=== PATIENT | female | born 1950 | race Caucasian/White ===

== ENCOUNTER 2023-11-01 15:08 | Emergency (ER) | payer MEDICARE, SELFPAY ==
[2023-11-01 15:20] VITALS: BP 167/83; PULSE 95; RESP 18; TEMP 37.1; O2SAT 95; BMI 27.1
--- NOTE | 2023-11-01 15:30 | EKG_ITS ---
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
[2023-11-01 15:37] LABS: Add Manual Diff / Slide Review NO; Basophils Absolute Auto 0 /uL (0-100); Basophils Percent Auto 0.4 % (0-2); Eosinophils Absolute Auto 0 /uL (0-450); Eosinophils Percent Auto 0.6 % (2-4); Hematocrit 36.2 % (36-46); Lymphocytes Absolute Auto 1800 /uL (1100-4500); Lymphocytes Percent Auto 22.9 % (25-40); Mean Corpuscular HGB Conc 33.2 % (30-36); Mean Corpuscular Hemoglobin 29.6 PG (26-34); Mean Corpuscular Volume 89.2 fL (80-100); Monocytes Absolute Auto 600 /uL (0-900); Monocytes Percent Auto 7.2 % (3-14); Neutrophils Absolute Auto 5300 /uL (1500-7000); Neutrophils Percent Auto 68.9 % (50-75); Platelet Count 268 X10^3/uL (150-400); Red Blood Cell Count 4.06 X10^6/uL (4.0-5.2); Red Cell Distribution Width 14.2 % (11.6-14.8); White Blood Cell Count 7.7 X10^3/uL (4.5-11.0)
[2023-11-01 15:42] LABS: Alanine Aminotransferase 18 IU/L (<35); Albumin 4.3 g/dL (3.5-5.0); Albumin Globulin Ratio 1.5 (1.0-2.8); Alkaline Phosphatase 132 U/L (38-126); Aspartate Aminotransferase 31 IU/L (14-36); BUN Creatinine Ratio 10.6 (6-22); Bilirubin Total 0.7 mg/dL (0.2-1.3); Blood Urea Nitrogen 11 mg/dL (7-17); Calcium 9.2 mg/dL (8.4-10.2); Carbon Dioxide 27 mmol/L (22-32); Chloride 110 mmol/L (98-107); Estimated Glomerular Filt Rate 56 mL/min (>60); Globulin 2.9 g/dL (1.7-4.1); Glucose 121 mg/dL (80-110); HEMOLYSIS < 15 (0-50); Potassium 3.8 mmol/L (3.4-5.1); Sodium 143 mmol/L (137-145); Total Protein 7.2 g/dL (6.3-8.2)
[2023-11-01 15:53] LABS: Troponin I < 0.012 ng/mL (0.01-0.034)
[2023-11-01] MEDS: SODIUM CHLORIDE 0.9% 1,000 ML 1000 ML IV (17:14)
--- NOTE | 2023-11-01 17:34 | ED.DIZZY ---
HPI - Dizziness General Chief Complaint: Dizziness Stated Complaint: Weakness Time Seen by Provider: 11/01/23 16:45 Source: EMS Mode of arrival: EMS History of Present Illness HPI Narrative: Patient is 73-year-old female history of depression hyperlipidemia PTSD presenting today with dizziness. She reports that she has had dizziness ongoing previously she says usually she drinks water and it gets better. She did not fall or hit her head today. She says it came on suddenly while she was sitting. She has no chest pain palpitations numbness tingling or weakness. This feels like the last time. She feels like she is going to fall or pass out when she stands up but has not fallen. She feels like this happens to her when she gets anxious. She has no fever or chills. She has not on any antiplatelet anticoagulation medication. Related Data Home Medications Medication Instructions Recorded Confirmed multivitamin (Multiple Vitamins 1 tab PO QDAY ##0 04/06/16 tablet) topiramate 200 mg tablet (Topamax) 200 mg ##0 06/20/16 azelastine 205.5 mcg (0.15 %) 2 spray INH QDAY ##1 07/08/16 nasal spray Previous Rx's Medication Instructions Recorded epinastine 0.05 % eye drops 1 drp OP BID ##1 07/01/16 (Elestat) lamotrigine 300 mg tablet,extended 300 mg PO QDAY #30 tabs 07/01/16 release 24 hr oxycodone 10 mg tablet 10 mg PO Q6HP PRN #112 tabs 07/01/16 venlafaxine 150 mg tablet,extended 150 mg PO QDAY ##180 07/01/16 release 24 hr hydroxyzine pamoate 25 mg capsule 25 mg PO QID PRN #60 caps 11/21/16 amoxicillin 500 mg capsule 500 mg PO BID #14 caps 11/01/23 Allergies Allergy/AdvReac Type Severity Reaction Status Date / Time CLINDAMYCIN Allergy Intermediate iching in Uncoded 11/01/23 15:25 throat drug from dentist MARIJUANA Allergy Mild FACIAL Uncoded 11/01/23 15:25 SWELLING PENICILLIN Allergy Mild RASH Uncoded 11/01/23 15:25 Patient History Social History Smoking Status: Former smoker Smoking Status: Former smoker Substance Use Type: does not use Exam Initial Vital Signs Initial Vital Signs: Vital Signs Temperature 98.8 F 11/01/23 15:20 Pulse Rate 95 H 11/01/23 15:20 Respiratory Rate 18 11/01/23 15:20 Blood Pressure 167/83 H 11/01/23 15:20 Pulse Oximetry 95 11/01/23 15:20 Oxygen Delivery Method Room Air 11/01/23 15:20 GENERAL: Alert slightly disheveled 73-year-old female HEENT: Head atraumatic,EOMI, pupils reactive, face symmetric, no nystagmus poor dentition CARDIOVASCULAR: Regular rate and rhythm without murmurs, rubs or gallops. RESPIRATORY: Breath sounds equal bilaterally, no wheezes rales or rhonchi. ABDOMEN: Soft, nontender. Normoactive bowel sounds all 4 quadrants. No guarding or rebound. EXTREMITIES: Normal range of motion, no clubbing or edema. Neurovascularly intact NEUROLOGICAL: Alert and oriented x4.Normal gait and speech. Cranial nerves II through XII grossly intact. SKIN: Warm, dry, no laceration, no petechiae, no rashes or lesions. Course Orders Ordered: ED Orders 11/01/23 15:12 Complete Blood Count AUTO DIFF Stat Comprehensive Metabolic Panel Stat Troponin I Stat 11/01/23 15:27 EKG-12 Lead Stat Discontinued Medications Sodium Chloride (Normal Saline 0.9%) 1,000 mls @ 1,000 mls/hr IV BOLUS ONE Stop: 11/01/23 17:43 Last Infusion: 11/01/23 18:49 Dose: Infused Documented By: Admin: 11/01/23 17:14 Dose: 1,000 mls/hr Documented By: NORAH Oxycodone HCl (Oxycodone Ir 5 Mg Tablet) 5 mg PO NOW ONE Stop: 11/01/23 18:12 Last Admin: 11/01/23 18:17 Dose: 5 mg Documented By: Vital Signs Vital signs: Vital Signs - 8 hr 11/01/23 15:20 Temperature 98.8 F Pulse Rate 95 H Respiratory Rate 18 Blood Pressure 167/83 H Pulse Oximetry 95 Oxygen Delivery Method Room Air MDM - Dizziness Lab Data 11/01/23 15:12 11/01/23 15:12 Labs: Lab Results 11/01/23 Range/Units 15:12 WBC 7.7 (4.5-11.0) X10^3/uL RBC 4.06 (4.0-5.2) X10^6/uL Hgb 12.0 (12.0-16.0) g/dL Hct 36.2 (36-46) % MCV 89.2 (80-100) fL MCH 29.6 (26-34) PG MCHC 33.2 (30-36) % RDW 14.2 (11.6-14.8) % Plt Count 268 (150-400) X10^3/uL Neut % (Auto) 68.9 (50-75) % Lymph % (Auto) 22.9 L (25-40) % [place] % (Auto) 7.2 (3-14) % Eos % (Auto) 0.6 L (2-4) % Baso % (Auto) 0.4 (0-2) % Neut # (Auto) 5300 (6806-7776) /uL Lymph # (Auto) 1800 (3016-5576) /uL [place] # (Auto) 600 (0-900) /uL Eos # (Auto) 0 (0-450) /uL Baso # (Auto) 0 (0-100) /uL Sodium 143 (137-145) mmol/L Potassium 3.8 (3.4-5.1) mmol/L Chloride 110 H (98-107) mmol/L Carbon Dioxide 27 (22-32) mmol/L BUN 11 (7-17) mg/dL Creatinine 1.04 (0.52-1.04) mg/dL Estimated GFR 56 L (>60) mL/min BUN/Creatinine Ratio 10.6 (6-22) Glucose 121 H (80-110) mg/dL Calcium 9.2 (8.4-10.2) mg/dL Total Bilirubin 0.7 (0.2-1.3) mg/dL AST 31 (14-36) IU/L ALT 18 (<35) IU/L Alkaline Phosphatase 132 H (38-126) U/L Troponin I < 0.012 (0.01-0.034) ng/mL Total Protein 7.2 (6.3-8.2) g/dL Albumin 4.3 (3.5-5.0) g/dL Globulin 2.9 (1.7-4.1) g/dL Albumin/Globulin Ratio 1.5 (1.0-2.8) Point of Care Testing Glucose POC 125 Urine Dip Bedside Urine Glucose Negative Bedside Urine Bilirubin - Negative Bedside Urine Ketone - Negative Urine Specific [place] 1.020 Bedside Urine Occult Blood - Negative Bedside Urine pH 6.0 Bedside Urine Protein - Negative Bedside Urine Urobilinogen - Negative Bedside Urine Nitrite - Negative Bedside Urine Leukocytes - Negative Esterase ECG Data Interpretation: Normal sinus rhythm rate 93 SC interval 196 QRS [address] changes MDM Narrative Medical decision making narrative: Patient is 73-year-old female presenting today with dizziness. She says that this happens to her often she feels like it is anxiety and usually IV fluids help. She has not nauseous or vomiting she has no focal deficits. Blood work has been reviewed without any significant abnormalities no anemia leukocytosis electrolyte abnormality or JADIEL with a negative troponin. EKG does not show any abnormality She received a L of IV fluids as her her home oxycodone she was given 5 mg. Patient is no longer dizzy feeling better but really complaining of dental pain. No evidence significant facial swelling erythema or dental abscess but will start her on amoxicillin. She is asked the staff repeatedly for a tooth pick and has been given a toothbrush and she is very unhappy. She no longer dizzy sitting up moving all extremities no focal deficits. Her has called her a [employer] cab Discharge Plan Departure Patient Disposition: Home Clinical Impression: Dizziness Instructions: DI for Dizziness-Nonvertigo Activity Restrictions/Additional Instructions: *You have been diagnosed with dizziness anxiety *What to do: At this time please go home and drink fluids take your tooth medicine as needed *Continue to take medications as directed *Follow up with your primary care provider in 2-3 days or call [phone] *Return to ER if you should have increasing dizziness fall or any new, worsening or concerning symptoms Prescriptions: New amoxicillin 500 mg capsule 500 mg PO BID Qty: 14 0RF No Action multivitamin [Multiple Vitamins] 1 EACH tablet 1 tab PO QDAY Qty: 0 topiramate [Topamax] 200 MG tablet 200 mg Qty: 0 oxycodone 10 MG tablet 10 mg PO Q6HP PRNQty: 112 0RF venlafaxine 150 MG tablet extended release 24hr 150 mg PO QDAY Qty: 180 1RF lamotrigine 300 MG tablet extended release 24hr 300 mg PO QDAY Qty: 30 0RF epinastine [Elestat] 5 ML drops 1 drp OP BID Qty: 1 0RF azelastine 205.5 MCG/0.137 ML spray,non-aerosol 2 spray INH QDAY Qty: 1 hydroxyzine pamoate 25 MG capsule 25 mg PO QID PRNQty: 60 0RF Referrals: Miscellaneous,Doctor, MD [Primary Care Provider] - Stand Alone Forms: Patient Portal/API
[2023-11-01] MEDS: OXYCODONE IR 5 MG TABLET PO (18:17)
== END 2023-11-01 19:38 | disposition home or self-care (01) ==
PROVIDERS: Emergency Provider Emergency Medicine
DX: R42 Dizziness and giddiness (principal); F41.9 Anxiety disorder, unspecified
CPT/HCPCS: 80053; 81003; 84484; 85025; 93005; 93010; 96360; 96361; 99284

== ENCOUNTER 2023-11-09 20:33 | Emergency (ER) | payer MEDICARE, SELFPAY ==
[2023-11-09 20:33] VITALS: BP 154/81; PULSE 88; RESP 15; TEMP 36.9; O2SAT 98; BMI 29.0
[2023-11-09 20:37] VITALS: BP 154/81; PULSE 85; O2SAT 97
[2023-11-09 21:00] VITALS: BP 150/70; PULSE 82; O2SAT 95
[2023-11-09 21:30] VITALS: PULSE 85; O2SAT 92
[2023-11-09 21:55] VITALS: BP 162/77; PULSE 85; O2SAT 96
[2023-11-09 22:00] VITALS: BP 148/73; PULSE 84; O2SAT 96
[2023-11-10] VITALS (25 sets, daily range): BP systolic 123–156; BP diastolic 62–85; PULSE 74–101; TEMP 37.2; O2SAT 85–99
--- NOTE | 2023-11-10 00:23 | ED.WEAKNESS ---
HPI - Weakness General Chief complaint: Weakness Stated complaint: weakness, confusion Time Seen by Provider: 11/10/23 00:21 Source: patient, EMS, RN notes reviewed and old records reviewed Mode of arrival: EMS Limitations: no limitations History of Present Illness HPI Narrative: 73-year-old female history depression, dyslipidemia, PTSD presents with complaint of fall. Patient states she ended up on the floor. She describes being dizzy. She states this is happens when she gets dehydrated but states they never find anything. She denies any headache or neck pain, no chest pain or shortness of breath, no nausea or vomiting. She denies any issues with bowel movements other than stools being little bit harder constipated. No black or bloody stools. Denies any dysuria urgency or frequency. Denies any numbness tingling or weakness of her extremities. She states she ambulates on her own but does sometimes get dizzy and fall. Patient states she does not really think that she fell but sort of ended up on the floor. Patient is not on any anticoagulants. She does have an allergy to. She states she has had some sort of abdominal surgery but does not recall exactly what was. Denies tobacco, alcohol or recreational drugs. Dr. Thurman is PCP. Related Data Home Medications Medication Instructions Recorded Confirmed multivitamin (Multiple Vitamins 1 tab PO QDAY ##0 04/06/16 tablet) topiramate 200 mg tablet (Topamax) 200 mg ##0 06/20/16 azelastine 205.5 mcg (0.15 %) 2 spray INH QDAY ##1 07/08/16 nasal spray Previous Rx's Medication Instructions Recorded epinastine 0.05 % eye drops 1 drp OP BID ##1 07/01/16 (Elestat) lamotrigine 300 mg tablet,extended 300 mg PO QDAY #30 tabs 07/01/16 release 24 hr oxycodone 10 mg tablet 10 mg PO Q6HP PRN #112 tabs 07/01/16 venlafaxine 150 mg tablet,extended 150 mg PO QDAY ##180 07/01/16 release 24 hr hydroxyzine pamoate 25 mg capsule 25 mg PO QID PRN #60 caps 11/21/16 amoxicillin 500 mg capsule 500 mg PO BID #14 caps 11/01/23 docusate sodium 100 mg capsule 100 mg PO BID PRN constipation #20 11/10/23 (Colace) caps tamsulosin 0.4 mg capsule (Flomax) 0.4 mg PO DAILY #10 caps 11/10/23 Allergies Allergy/AdvReac Type Severity Reaction Status Date / Time Penicillins Allergy Verified 11/09/23 20:41 Review of Systems Review of Systems ROS Unobtainable: All systems reviewed & are unremarkable except as noted in HPI and below Patient History Social History Smoking Status: Former smoker Smoking Status: Former smoker Substance Use Type: does not use Exam Narrative Exam Narrative: GEN: Elderly female, alert and oriented, patient appears to be in mild distress. HEENT: Atraumatic, pupils are equal round reactive to light, extraocular movements are intact, nares are clear, TMs are clear with no fluid, there is no conjunctival pallor. Throat is clear without any exudates, erythema, tonsillar enlargement or uvular deviation, no facial droop. HEART: Regular rate and rhythm without murmur, clicks, rubs. Pulses are equal in upper and lower extremities LUNGS:Lungs clear to auscultation, no wheezes, rales, crackles, chest moves symmetrically ABD:bowel sounds normal, soft, non-tender, no guarding, rebound, rigidity, no masses noted, no hepatosplenomegaly :No CVA tenderness MSCL: Non-tender, no muscle atrophy, muscles strength 5/5 upper and lower extremities, full range of motion. NEURO:CN 2-12 intact, sensation normal, normal sensation. Initial Vital Signs Initial Vital Signs: Vital Signs Temperature 98.4 F 11/09/23 20:33 Pulse Rate 88 11/09/23 20:33 Respiratory Rate 15 11/09/23 20:33 Blood Pressure 154/81 H 11/09/23 20:33 Pulse Oximetry 98 11/09/23 20:33 Oxygen Delivery Method Room Air 11/09/23 20:33 Course Orders Ordered: ED Orders 11/10/23 00:39 CT head/brain wo con Stat Chest [XR chest 1V] Stat EKG-12 Lead Stat 11/10/23 01:30 CBC Auto Diff [Complete Blood Count AUTO DIFF] Stat CMP [Comprehensive Metabolic Panel] Stat Lipase Stat Troponin & CK Cardiac Panel Stat 11/10/23 03:15 CT kidney ureter bladder (KUB) Stat 11/10/23 05:21 Consult to Physical Therapy Evaluate & Treat 11/10/23 05:27 Consult to [employer] ADMINISTRATIVE ASSISTANT - Travel Registered Nurse Pacu Stat Discontinued Medications Sodium Chloride (Normal Saline 0.9%) 1,000 mls @ 1,000 mls/hr IV BOLUS ONE Stop: 11/10/23 01:38 Last Infusion: 11/10/23 02:36 Dose: Infused Documented By: Admin: 11/10/23 01:24 Dose: 1,000 mls/hr Documented By: MARVIN Ketorolac Tromethamine (Ketorolac 30 Mg/Ml Vial) 15 mg IV NOW ONE Stop: 11/10/23 04:20 Last Admin: 11/10/23 04:27 Dose: 15 mg Documented By: MARVIN Vital Signs Vital signs: Vital Signs - 8 hr 11/10/23 00:31 11/10/23 01:08 11/10/23 01:30 Pulse Rate 81 77 76 Blood Pressure Pulse Oximetry 94 85 L 97 11/10/23 02:00 11/10/23 02:30 11/10/23 03:16 Pulse Rate 76 74 77 Blood Pressure Pulse Oximetry 98 97 96 11/10/23 03:16 11/10/23 03:30 11/10/23 03:30 Pulse Rate 76 Blood Pressure 151/71 H 156/83 H Pulse Oximetry 98 11/10/23 04:01 11/10/23 04:02 11/10/23 04:02 Pulse Rate 78 78 Blood Pressure 125/68 Pulse Oximetry 95 97 11/10/23 05:31 11/10/23 05:31 11/10/23 06:00 Pulse Rate 76 Blood Pressure 129/69 149/71 H Pulse Oximetry 96 11/10/23 06:00 Pulse Rate 77 Blood Pressure Pulse Oximetry 92 MDM - Weakness Lab Data 11/10/23 01:30 11/10/23 01:30 Labs: Lab Results 11/10/23 Range/Units 01:30 WBC 8.0 (4.5-11.0) X10^3/uL RBC 3.93 L (4.0-5.2) X10^6/uL Hgb 11.5 L (12.0-16.0) g/dL Hct 34.5 L (36-46) % MCV 87.7 (80-100) fL MCH 29.3 (26-34) PG MCHC 33.4 (30-36) % RDW 14.3 (11.6-14.8) % Plt Count 281 (150-400) X10^3/uL Neut % (Auto) 62.3 (50-75) % Lymph % (Auto) 28.0 (25-40) % [place] % (Auto) 7.6 (3-14) % Eos % (Auto) 1.0 L (2-4) % Baso % (Auto) 1.1 (0-2) % Neut # (Auto) 5000 (9778-0808) /uL Lymph # (Auto) 2200 (2127-4471) /uL [place] # (Auto) 600 (0-900) /uL Eos # (Auto) 100 (0-450) /uL Baso # (Auto) 100 (0-100) /uL Sodium 140 (137-145) mmol/L Potassium 3.7 (3.4-5.1) mmol/L Chloride 110 H (98-107) mmol/L Carbon Dioxide 29 (22-32) mmol/L BUN 16 (7-17) mg/dL Creatinine 0.92 (0.52-1.04) mg/dL Estimated GFR > 60 (>60) mL/min BUN/Creatinine Ratio 17.4 (6-22) Glucose 96 (80-110) mg/dL Calcium 9.2 (8.4-10.2) mg/dL Total Bilirubin 0.8 (0.2-1.3) mg/dL AST 53 H (14-36) IU/L ALT 23 (<35) IU/L Alkaline Phosphatase 119 (38-126) U/L Total Creatine Kinase 649 H (30-135) U/L Troponin I < 0.012 (0.01-0.034) ng/mL Total Protein 6.5 (6.3-8.2) g/dL Albumin 3.8 (3.5-5.0) g/dL Globulin 2.7 (1.7-4.1) g/dL Albumin/Globulin Ratio 1.4 (1.0-2.8) Lipase 41 (23-300) U/L Urine Dip Bedside Urine Glucose Negative Bedside Urine Bilirubin - Negative Bedside Urine Ketone - Negative Urine Specific [place] 1.010 Bedside Urine Occult Blood - Negative Bedside Urine pH 6.0 Bedside Urine Protein - Negative Bedside Urine Urobilinogen - Negative Bedside Urine Nitrite - Negative Bedside Urine Leukocytes - Negative Esterase ECG Data Attestation: I personally reviewed and interpreted this ECG as follows: Prior ECG tracings: available for review Interpretation: Sinus rhythm rate of 79 AR 194 QRS is 74 QTC [address] No acute ST elevation or depression noted. Patient has similar EKG [facility]01/2023 [facility] Narrative Medical decision making narrative: Labs show white count 8 hemoglobin 11.5 was 12 on the 31 of October, platelets are 281. Sodium is 140 potassium 3.7 chloride 110 CO2 is 29 BUN 16 creatinine 0.92, glucose is 96, AST is 53 but ALT is 23 with a bilirubin of 0.8 total CK 649 troponins less than 0.012, lipase negative. Head CT is negative for acute change. Chest x-ray shows no acute change EKG shows sinus rhythm. Point of care urine is negative. Called patients , first number was busy. Patient answered on 2nd number. He notes that she seems more altered than typical. He states he does not think that she fell but she does use herself to the floor fairly frequently. She does normally ambulate he notes that she has a prior TBI but states she seemed much more coherent today. She states she normally ambulates he has noted some incontinence in the last day or so which is atypical. He states no issues with bowel movements no nausea or vomiting she has not been complaining of any pain. Bladder scan was performed shows 900 mL, Barlow catheter was placed. CT KUB performed patient has moderately severe fecal retention with cecum extending to right lower mildly distended cecum upper diameter normal various colonic loops findings probably related to mild colonic ileus. Mechanical obstruction unlikely. Radiographic follow up as clinically indicated. Retrocecal appendix unremarkable. Loss of height at L1-L3 vertebral bodies age uncertain possible subacute to chronic. Discharge Plan Departure Patient Disposition: Home Clinical Impression: Fall, Acute urinary retention, Constipation Instructions: How to Care for Your Barlow Catheter -- Female, DI for Urinary Retention in Women Activity Restrictions/Additional Instructions: Follow up with Urology for recheck. You are found to be in urinary retention. You are also somewhat constipated. Incidentally found to have some compression fractures L1 through L3 in your lumbar spine although these appear to be older and not brand new. A catheter has been placed to allow your bladder to drain properly. It is also important that you take medications to help with bowel movements. Take Flomax once daily until gone. Take Colace 1-2 tablets daily until stools are soft, if you are still having difficulty with bowel movements you can have take MiraLax along with it. Prescription sent to [facility] in [place]. Please return for fevers, new abdominal back or flank pain, persistent vomiting, confusion, if your catheter is not draining or other new or concerning changes. Prescriptions: New tamsulosin [Flomax] 0.4 mg capsule 0.4 mg PO DAILY Qty: 10 0RF docusate sodium [Colace] 100 mg capsule 100 mg PO BID PRN (Reason: constipation) Qty: 20 0RF No Action multivitamin [Multiple Vitamins] 1 EACH tablet 1 tab PO QDAY Qty: 0 topiramate [Topamax] 200 MG tablet 200 mg Qty: 0 oxycodone 10 MG tablet 10 mg PO Q6HP PRNQty: 112 0RF venlafaxine 150 MG tablet extended release 24hr 150 mg PO QDAY Qty: 180 1RF lamotrigine 300 MG tablet extended release 24hr 300 mg PO QDAY Qty: 30 0RF epinastine [Elestat] 5 ML drops 1 drp OP BID Qty: 1 0RF azelastine 205.5 MCG/0.137 ML spray,non-aerosol 2 spray INH QDAY Qty: 1 hydroxyzine pamoate 25 MG capsule 25 mg PO QID PRNQty: 60 0RF amoxicillin 500 mg capsule 500 mg PO BID Qty: 14 0RF Referrals: Reji Javed MD [Physician] - Miscellaneous,MD Jacques [Primary Care Provider] - Stand Alone Forms: Patient Portal/API
--- NOTE | 2023-11-10 00:39 | DI.RAD.S_ITS ---
PROCEDURE: XR CHEST 1V INDICATIONS: fall TECHNIQUE: One view of the chest was acquired. COMPARISON: None. FINDINGS: Surgical changes and devices: None. Lungs and pleura: Lung lungs are diminished likely related to poor inspiratory effort. Lungs are otherwise clear. No pleural effusions or pneumothorax. Mediastinum: Mediastinal contours appear normal. Heart size is normal. Bones and chest wall: No suspicious bony lesions. Overlying soft tissues appear unremarkable. No acute fracture seen. IMPRESSION: No acute cardiopulmonary abnormality is seen. Dictated by: Phillip Tesfaye M.D. on 11/10/2023 at 1:33 Approved by: Phillip Tesfaye M.D. on 11/10/2023 at 1:34
--- NOTE | 2023-11-10 00:39 | DI.CT.S_ITS ---
PROCEDURE: CT HEAD/BRAIN WO CON INDICATIONS: fall TECHNIQUE: Noncontrast 4.5 mm thick angled axial sections acquired from the foramen magnum to the vertex, with coronal and sagittal reformats. For radiation dose reduction, the following was used: automated exposure control, adjustment of mA and/or kV according to patient size. COMPARISON: None. FINDINGS: Image quality: Diagnostic. CSF spaces: Basal cisterns are patent. No extra-axial fluid collections. The ventricles are symmetric in size and shape. Brain: No intracranial bleeds or masses. There is cerebral volume loss for age, with resultant ventricular and sulcal prominence. There are periventricular and deep white matter chronic small vessel ischemic changes. There is intracranial internal carotid artery atherosclerosis. Skull and face: Calvarium and visualized facial bones appear intact, without suspicious lesions. Sinuses: Visualized sinuses and mastoids are clear. IMPRESSION: 1. CT head without acute intracranial abnormalities or acute calvarial fractures. 2. Age-related senescent changes and sequela of chronic small vessel ischemic disease. Dictated by: Phillip Tesfaye M.D. on 11/10/2023 at 1:35 Approved by: Phlilip Tesfaye M.D. on 11/10/2023 at 1:36
--- NOTE | 2023-11-10 01:13 | EKG_ITS ---
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
[2023-11-10] MEDS: SODIUM CHLORIDE 0.9% 1,000 ML 1000 ML IV (01:24)
[2023-11-10 01:46] LABS: Add Manual Diff / Slide Review NO; Basophils Absolute Auto 100 /uL (0-100); Basophils Percent Auto 1.1 % (0-2); Eosinophils Absolute Auto 100 /uL (0-450); Hematocrit 34.5 % (36-46); Hemoglobin 11.5 g/dL (12.0-16.0); Lymphocytes Absolute Auto 2200 /uL (1100-4500); Mean Corpuscular HGB Conc 33.4 % (30-36); Mean Corpuscular Hemoglobin 29.3 PG (26-34); Mean Corpuscular Volume 87.7 fL (80-100); Monocytes Absolute Auto 600 /uL (0-900); Monocytes Percent Auto 7.6 % (3-14); Neutrophils Absolute Auto 5000 /uL (1500-7000); Neutrophils Percent Auto 62.3 % (50-75); Platelet Count 281 X10^3/uL (150-400); Red Blood Cell Count 3.93 X10^6/uL (4.0-5.2); Red Cell Distribution Width 14.3 % (11.6-14.8)
[2023-11-10 01:52] LABS: Alanine Aminotransferase 23 IU/L (<35); Albumin 3.8 g/dL (3.5-5.0); Albumin Globulin Ratio 1.4 (1.0-2.8); Alkaline Phosphatase 119 U/L (38-126); Aspartate Aminotransferase 53 IU/L (14-36); BUN Creatinine Ratio 17.4 (6-22); Bilirubin Total 0.8 mg/dL (0.2-1.3); Blood Urea Nitrogen 16 mg/dL (7-17); Calcium 9.2 mg/dL (8.4-10.2); Carbon Dioxide 29 mmol/L (22-32); Chloride 110 mmol/L (98-107); Creatine Kinase 649 U/L (30-135); Estimated Glomerular Filt Rate > 60 mL/min (>60); Globulin 2.7 g/dL (1.7-4.1); Glucose 96 mg/dL (80-110); HEMOLYSIS < 15 (0-50); Lipase 41 U/L (23-300); Potassium 3.7 mmol/L (3.4-5.1); Sodium 140 mmol/L (137-145); Total Protein 6.5 g/dL (6.3-8.2)
[2023-11-10 02:04] LABS: Troponin I < 0.012 ng/mL (0.01-0.034)
--- NOTE | 2023-11-10 03:15 | DI.CT.S_ITS ---
PROCEDURE: CT KIDNEY URETER BLADDER (KUB) INDICATIONS: urinary retention TECHNIQUE: Axial sections were acquired from the lung bases to the pubic symphysis. Coronal and sagittal reformats were performed. For radiation dose reduction, the following was used: automated exposure control, adjustment of mA and/or kV according to patient size. COMPARISON: None. FINDINGS: Image quality: Diagnostic. Lower Chest: No significant findings. URINARY: Right Kidney: No stones or hydronephrosis. Right Ureter: No hydroureter. Left Kidney: No stones or hydronephrosis. Left Ureter: No hydroureter. Bladder: Normal wall thickness. No stones. ABDOMEN: Liver: No contour-deforming solid mass. Gallbladder: Gallstone versus sludge ball measuring 1.6 cm. Biliary ducts: No biliary dilation. Pancreas: No ductal dilation. Extensive chronic calcifications are consistent with chronic pancreatitis. Spleen: Size is within normal limits. Adrenal Glands: No adrenal nodules. Stomach and Bowel: Normal colonic caliber, without significant wall thickening. Moderately large fecal load. Peritoneum: No abnormal intraperitoneal fluid. No free air. Ventral Wall: No hernia. Abdominal Nodes: No enlarged retroperitoneal or mesenteric lymph nodes. Vessels: Aorta and inferior vena cava are normal in size. PELVIS: Pelvic Organs: Unremarkable. Pelvic Nodes: Unremarkable. Miscellaneous: No inguinal hernias are seen. Bones: There are compression fractures of the superior endplates of L1, L2, and L3. L3 is definitely chronic. L1 on L2 are most likely chronic but may have a subacute component. IMPRESSION: 1. Moderately large fecal load. 2. No acute abdominal process noted. 3. No renal stones, ureteral stones, or hydronephrosis. 4. Multiple osteoporotic compressions. These are likely chronic. Cannot exclude a subacute component of L1 and L2 compressions. Comment: Final report is concordant with preliminary interpretation provided by [facility]. Dictated by: Guillaume Guzman M.D. on 11/10/2023 at 8:08 Approved by: Guillaume Guzman M.D. on 11/10/2023 at 8:12
[2023-11-10] MEDS: KETOROLAC 30 MG/ML VIAL 15 MG IV (04:27)
[2023-11-10 08:31] LABS: Add Manual Diff / Slide Review NO; Basophils Absolute Auto 0 /uL (0-100); Basophils Percent Auto 0.5 % (0-2); Eosinophils Absolute Auto 100 /uL (0-450); Eosinophils Percent Auto 1.3 % (2-4); Hematocrit 32.6 % (36-46); Lymphocytes Absolute Auto 1800 /uL (1100-4500); Lymphocytes Percent Auto 26.7 % (25-40); Mean Corpuscular HGB Conc 33.7 % (30-36); Mean Corpuscular Hemoglobin 29.9 PG (26-34); Mean Corpuscular Volume 88.7 fL (80-100); Monocytes Absolute Auto 500 /uL (0-900); Monocytes Percent Auto 6.8 % (3-14); Neutrophils Absolute Auto 4300 /uL (1500-7000); Neutrophils Percent Auto 64.7 % (50-75); Platelet Count 246 X10^3/uL (150-400); Red Blood Cell Count 3.67 X10^6/uL (4.0-5.2); Red Cell Distribution Width 14.2 % (11.6-14.8); White Blood Cell Count 6.7 X10^3/uL (4.5-11.0)
[2023-11-10 09:12] LABS: Acetaminophen < 10 ug/mL (10-30); Ammonia (NH3) < 9 umol/L (9-30)
[2023-11-10 09:13] LABS: Alanine Aminotransferase 21 IU/L (<35); Albumin 3.4 g/dL (3.5-5.0); Albumin Globulin Ratio 1.3 (1.0-2.8); Alkaline Phosphatase 111 U/L (38-126); Aspartate Aminotransferase 58 IU/L (14-36); BUN Creatinine Ratio 16.7 (6-22); Bilirubin Total 0.8 mg/dL (0.2-1.3); Blood Urea Nitrogen 14 mg/dL (7-17); Calcium 8.6 mg/dL (8.4-10.2); Carbon Dioxide 28 mmol/L (22-32); Chloride 112 mmol/L (98-107); Estimated Glomerular Filt Rate > 60 mL/min (>60); Ethanol (ETOH) < 10 mg/dL; Globulin 2.6 g/dL (1.7-4.1); Glucose 95 mg/dL (80-110); HEMOLYSIS < 15 (0-50); Lipase 36 U/L (23-300); Potassium 3.8 mmol/L (3.4-5.1); Sodium 140 mmol/L (137-145)
[2023-11-10 09:27] LABS: Ur Creatinine Normal (Normal); Ur Specific Gravity Normal (Normal); Urine Amphetamines Negative (Negative); Urine Barbiturates Negative (Negative); Urine Benzodiazepines Negative (Negative); Urine Cocaine Negative (Negative); Urine MDMA Negative (Negative); Urine Methadone Negative (Negative); Urine Methamphetamines Negative (Negative); Urine Opiates Negative (Negative); Urine Oxycodone Positive (Negative); Urine Phencyclidine Negative (Negative); Urine THC Negative (Negative); Urine Tricyclic Antidepressant Negative (Negative); Urine pH Normal (Normal)
--- NOTE | 2023-11-10 09:30 | PC.NURSE ---
Pt resting in bed asleep. Woke pt, pt immediately yells Don't call me Jennifer! I will not respond if you call me Jennifer. My name is Jennifer Covarrubias.Pt was assisted to sit up in the bed to eat breakfast. Call light in reach, denies further needs.
[2023-11-10 09:43] LABS: Thyroid Stimulating Hormone 0.357 uIU/mL (0.47-4.68)
[2023-11-10 10:27] LABS: Free T3, Triiodothyronine Free 2.99 pg/mL (2.77-5.27); Free T4, Direct Thyroxine 0.79 ng/dL (0.78-2.19)
--- NOTE | 2023-11-10 10:45 | PC.NURSE ---
Pt able to sit up at bedside on her own and stand, holding her husbands 4 wheeled walker. She refused to use hospital walker. Pt ambulated in the hallway and around the ER department with no complaints of pain or dizziness. While walking back to her room pt began slouching and pushing the walker arms reach in front of her. I had pt stop and bring the walker close to her body. Pt took a few more steps and immediately started slouching, letting go of the walker and began moving towards the floor. I caught pt and assisted her to take 2 steps to the side of the bed. Pt sat on the edge of the bed. I tried helping pt get more secure on the bed and pt yells Let go of me! I'm not going to fall! and pt started pushing me away while leaning on the edge of the bed. Pt instructed if I let go of her, she will fall on the floor. MANAGER GREEN entered the room and assisted boosting pt up in the bed. Pt continues to endorse she wasnt falling. Vitals stable after walking, see vitals.
[2023-11-10] MEDS: OXYCODONE/ACETAMINOPHEN 5/325 TABLET 1 TAB PO (10:57)
--- NOTE | 2023-11-10 11:45 | PT.IIE ---
Physical Therapy Inpatient Evaluation/Re-Eval M1 PT/OT-IP Prior Functional Status Start: 11/10/23 15:37 Freq: Status: Active Protocol: Document 11/10/23 11:45 AB (Rec: 11/10/23 15:55 AB [id number]) Medical Review Prior Functional Status Medical History Reviewed Yes Communication able to make needs known Mobility and Gait pt stated that she was modified independent with all mobilities and ambulation using a 4WW but only for short distances inside their apartment; stated that she uses her manual w/c for long distances, outdoor mobility. Social History Household Members spouse Number of Floors (Floors) One Floor Number of Stairs To Enter/Railing? pt lives at [facility] no steps to enter Home Environment Standard Height Toilet,Walk in Shower Home Equipment Four Wheel Walker,Shower Seat without Backrest,Hand Held Shower,Grab Bars Near Toilet Additional Social History Comment pt sleeps on a recliner M2 PT-IP Current Condition Start: 11/10/23 15:37 Freq: Status: Active Protocol: Document 11/10/23 11:45 AB (Rec: 11/10/23 15:55 AB [id number]) Physical Therapy Current Condition Current Condition Evaluation Date 11/10/23 Treatment Diagnosis urinary retention; weakness Onset Date 11/10/23 M3 PT-IP Subjective Start: 11/10/23 15:37 Freq: Status: Active Protocol: Document 11/10/23 11:45 AB (Rec: 11/10/23 15:55 AB [id number]) Subjective Physical Therapy Visit Type Type Initial Evaluation Visit Start Time 11:45 Visit Stop Time 12:25 Number of MAINTENANCE FOREMAN Visits 0 Therapy Pain Assessment Pain When Pain Assessed At Rest Pain Present Pain Present Pain Reported Location Bilateral Foot Intensity 7 Scale Used Numeric (0 - 10) Pain Management Techniques Distraction,Modification of Treatment,Re-positioning, Timing of Activity with Medications M4 PT-IP Mobility and Gait Start: 11/10/23 15:37 Freq: Status: Active Protocol: Document 11/10/23 11:45 AB (Rec: 11/10/23 15:55 AB [id number]) PT-Bed Mobility Assessment Supine to Sit Supine to Sit Standby Assistance Sit to Supine Sit to Supine Standby Assistance PT-Transfer Assessment Sit to and From Stand Sit to and from Stand Standby Assistance,1 Person Assistance,Use of Upper Extremities Equipment Transfer Assistive Device Gait Belt,4 Wheeled Walker Orthotic/Prosthetic Devices or Brace: No Comments Mobility Comments pt supine in bed. pt easily gets agitated and distracted. spouse in room with pt. obtained PLOF and home set up. pt stated that if she walks far, her LE gets cramps and contracted and most of the time, she will lower herself down to the floor. stated that this is what happened prior to going to the ED and that she actually did not fall. pt stated that she uses her manual w/c if she has to go walk far/outdoor. pt completed supine to sit SBA . sit to stand SBA and ambulated using a 4WW with initial SBA to CGA. pt directs her own care and resistive to instructions affecting pt's safety awarenes . pt tends to push 4WW too far forward and when instructed to correct, pt becomes agitated. instructed pt sit turn to go back to her room after ~ 100 ft of ambulation, since pt informed PT initially that she can only walk a short distance. but when instructed, pt stated that she can go around the hallway. pt needing max A x 1-2 towards end of ambulation due to pt leaning all the way forward and 4WW too far forward. assist pt to EOB max A. completed sit to supine SBA. positioned pt in bed. call light and table placed within reach. informed nurse and case finisher regarding pt's mobility and decrease safety awareness affecting current level of funciton. Gait Assessment Gait Gait Assistance Required: Standby Assistance,Contact Guard Assist,Maximum Assistance,1 Person Assist,2 Person Assist Distance (Feet) 200 Able to Maintain Weight Bearing Status Yes During Gait Assistive Devices Assistive Device Gait Belt,4 Wheeled Walker Orthotic/Prosthetic Devices or Brace: No Factors Limiting Gait Function Factors Limiting Gait Function Decreased Activity Tolerance, Poor Balance,Poor Safety Awareness PT-Balance Assessment Sitting Balance and Reactions Static Sitting Balance Ability Normal Dynamic Sitting Balance Ability Good Standing Balance and Reactions Static Standing Balance Ability Fair Dynamic Standing Balance Ability Fair Device Used 4WW M5 PT-IP Objective Assessments Start: 11/10/23 15:37 Freq: Status: Active Protocol: Document 11/10/23 11:45 AB (Rec: 11/10/23 15:55 AB [id number]) Orientation Orientation/Cognition Level of Alertness Confusional State Orientation Name Safety Awareness Decreased Safety Awareness Memory Description Short Term Impaired,Jail Impaired Sensation Assessment Sensation Sensation Description Pain Comments Sensation Comments pt stated that she has chronic B feet neuropathy Muscle Tone Muscle Tone WNL Yes M6 PT-IP Treatment Start: 11/10/23 15:37 Freq: Status: Active Protocol: Document 11/10/23 11:45 AB (Rec: 11/10/23 15:55 AB [id number]) Physical Therapy Treatment Education Education Provided Safety M7 PT-IP Assessment and Plan Start: 11/10/23 15:37 Freq: Status: Active Protocol: Document 11/10/23 11:45 AB (Rec: 11/10/23 15:55 AB [id number]) PT Summary Assessment and Plan Potential Rehabilitation Potential Fair Status of Condition at Evaluation Evolving Summary Impairments Pain,ROM,Strength,Balance, Coordination,Sensation,Tone, Cognition,Bed Mobility, Transfers,Gait,Activity Tolerance Assessment Summary Pt presented to the ED for weakness and confusion. pt requiring SBA for bed mobility , SBA for sit to stand . pt initially only requiring SBA to CGA with ambulation using 4WW but towards end of ambulation requiring max A and max cues. pt has poor safety awareness affecting mobility independence. pt plans to go home with spouse but spouse will not be able to assist pt. pt wants to go home and will need HHPT if pt goes home. pt with cognitive issues affecting safety and tends to direct her own care. Goals Bed Mobility Goal Independent Transfer Goal Independent,Four Wheeled Walker Gait Goal Independent,Four Wheel Walker Gait Distance 100 Days to Meet Goals 5 Frequency of Treatment Frequency Of Treatment Once a Day Treatment Plan Physical Therapy Treatment Plan Bed Mobility Training,Transfer Training,Gait Training, Therapeutic Exercise,Balance Retraining,Discharge Planning, Hot or Cold Pack,Neuromuscular Re-ed,Coordination Retraining ,Manual Therapy Precautions Other Precautions falls Recommendations To Nursing Amount of Assist Needed 1 Person Assist Discharge Recommendations PT Discharge Recommendations Home with 12/12 Assist Available,Home Health Transportation Needs at Discharge Private Vehicle
--- NOTE | 2023-11-10 13:29 | CM.SWNOTE ---
ED VISION IMPAIRED TEACHER Note VISION IMPAIRED TEACHER receives consult due to concern for patient's fall, confusion last evening. Patient is 73 y/o female who presents to ED via EMS after GLF last evening. It is reported that patient has Bipolar and has not been taking her medication since she moved to [place] from [place] a few months ago. In the ED it was found that patient has acute urinary retention, a compression fracture L1-L3 of the lumbar spine, and constipation. Patient has new establish care appt with Kristen Thurman PA-C on MondayNovember 13 @ 3:15pm. VISION IMPAIRED TEACHER calls the clinic to confirm this appt and discusses patient's presentation to the ED. Patient has Medicare insurance. Patient has hx of Bipolar, PTSD, Acute Urinary Retention, NAT, and Moderate episode of recurrent Major Depression. VISION IMPAIRED TEACHER enters room to meet with patient, patient presents as A/Ox4, present in ED is patient's spouse Tj. It is reported that they reside at [facility] and they just moved there a few months ago. Patient's spouse states that his nephew and cousin live in town and that is what brought them to the area. Patient states they had a PCP appt scheduled the day they were moving here but it was cancelled and they have not established care yet and patient has not been taking rx. Patient endorses she uses FWW at baseline, is able to get to the bathroom, manage ADLs but has not been able to shower. It is reported that they receive rides from [facility] staff. VISION IMPAIRED TEACHER discusses Home Health and the Community [facility] [employer] program through [facility]. Patient endorses she wants to make sure HH is covered by Medicare because when her had the referral they had to pay for it. VISION IMPAIRED TEACHER refers patient to [facility] program via [facility] and email. PT meets with patient and evaluates patient's ambulation, it is reported that patient would benefit from HH due to concern for patient's safety awareness with FWW and cognition. Patient uses FWW inside apartment and uses Wheelchair outside of home. VISION IMPAIRED TEACHER calls [facility] regarding referral and VISION IMPAIRED TEACHER explains patient's new PCP and upcoming appt. Errol at [facility] is unsure if Medicare will cover patient's HH but encourages VISION IMPAIRED TEACHER to submit order and F2F referral for HH. Errol states he will speak with patient's PCP office about patient and upcoming appt and inquire a HH referral from them as well to ensure Medicare coverage. VISION IMPAIRED TEACHER explains this to patient and encourages patient to attend upcoming PCP appt on Monday. VISION IMPAIRED TEACHER provides patient with [facility] referral, senior resource guide and contact information for [facility] Ticket Distributor. Plan: Patient to d/c to home upon medical clearance with spouse via [facility] transport, Pt to f/u with PCP appt on Monday, pending HH referral with [facility] and referral with [facility] Work Ticket Distributor program. Clara Estrada, SENIOR STORAGE ADMINISTRATOR
== END 2023-11-10 13:34 | disposition home or self-care (01) ==
PROVIDERS: Emergency Medicine; Emergency Provider Emergency Medicine
DX: R33.8 Other retention of urine (principal); K59.00 Constipation, unspecified; R42 Dizziness and giddiness; W18.30XA Fall on same level, unspecified, initial encounter
CPT/HCPCS: 36415; 51798; 70450; 71045; 74176; 80053; 80305; 80320; 80329; 81003; 82140; 82550; 83690; 84439; 84443; 84481; 84484; 85025; 93005; 96361; 96374; 97116; 97162; 99284; G0480; J1885

== ENCOUNTER 2024-02-09 11:17 | Emergency (ER) | payer OTHER, SELFPAY ==
[2024-02-09] VITALS (13 sets, daily range): BP systolic 149–164; BP diastolic 69–84; PULSE 73–92; RESP 20; TEMP 36.5; O2SAT 90–97; BMI 28.2
--- NOTE | 2024-02-09 12:01 | ED_ITS ---
HPI - General Adult General Chief complaint: Weakness Stated complaint: Gen. Weakness Time Seen by Provider: 02/09/24 11:32 Source: patient and EMS Mode of arrival: EMS History of Present Illness HPI narrative: Patient is a 73-year-old female brought in by EMS for evaluation of weakness. She states that her symptoms started yesterday. She states she has been in the emergency department multiple times in the past because of the same symptoms. She also states she was hallucinating but this is not new for her. She denies chest pain, shortness of breath, abdominal pain. States it is not a vertigo sensation. Not a headache. She was having lower back pain but this is baseline for her. She was have history of fibromyalgia. No family members at bedside Related Data Home Medications Medication Instructions Recorded Confirmed multivitamin (Multiple Vitamins 1 tab PO QDAY ##0 04/06/16 02/09/24 tablet) bupropion HCl 300 mg 24 hr tablet, 300 mg PO DAILY 02/09/24 02/09/24 extended release fluoxetine 20 mg capsule 60 mg PO QAM 02/09/24 02/09/24 gabapentin 600 mg tablet 600 mg PO 3XD 02/09/24 02/09/24 lisinopril 10 1 tab PO DAILY 02/09/24 02/09/24 mg-hydrochlorothiazide 12.5 mg tablet oxycodone 10 mg tablet 10 mg PO 3XD PRN Pain (Scale Score 02/09/24 02/09/24 7-10) quetiapine 25 mg tablet 25 mg PO BID 02/09/24 02/09/24 Previous Rx's Medication Instructions Recorded docusate sodium 100 mg capsule 100 mg PO BID PRN constipation #20 11/10/23 (Colace) caps Allergies Allergy/AdvReac Type Severity Reaction Status Date / Time Penicillins Allergy Verified 02/09/24 13:20 Review of Systems Review of Systems Narrative: See HPI Patient History Social History household members: spouse Smoking Status: Former smoker Smoking Status: Former smoker Substance Use Type: does not use Exam Initial Vital Signs Initial Vital Signs: Vital Signs Pulse Rate 80 02/09/24 11:27 Blood Pressure 164/74 H 02/09/24 11:27 Pulse Oximetry 94 02/09/24 11:27 Const General: cooperative, comfortable and No ill appearing HENMT Head: normal to inspection and normocephalic Resp Effort & Inspection: normal respiratory effort Auscultation: clear to auscultation bilaterally Cardio Rate: regular rate Rhythm: regular rhythm GI Inspection: normal to inspection and non-distended Skin General: no rashes or lesions noted Neuro Other: Patient is alert to person and place. Speech is normal. Extrem Other: No gross deformities Course Orders Ordered: ED Orders 02/09/24 11:49 Consult to [employer] - Mortgage Specialist Stat 02/09/24 13:20 Complete Blood Count AUTO DIFF Stat Comprehensive Metabolic Panel Stat Lipase Stat 02/09/24 13:25 Urinalysis and Microscopic Stat Discontinued Medications Lorazepam (Lorazepam 0.5 Mg Tablet) 0.5 mg PO NOW ONE Stop: 02/09/24 12:08 Last Admin: 02/09/24 12:35 Dose: 0.5 mg Documented By: ANA Vital Signs Vital signs: Vital Signs - 8 hr 02/09/24 11:27 02/09/24 11:27 02/09/24 11:30 Temperature 97.7 F Pulse Rate 80 78 Respiratory Rate 20 Blood Pressure 164/74 H 164/74 H Pulse Oximetry 94 95 Oxygen Delivery Method Room Air 02/09/24 11:30 02/09/24 11:30 02/09/24 12:00 Temperature Pulse Rate 79 73 Respiratory Rate Blood Pressure 157/69 H Pulse Oximetry 97 95 Oxygen Delivery Method 02/09/24 12:00 02/09/24 12:30 02/09/24 12:30 Temperature Pulse Rate 77 Respiratory Rate Blood Pressure 161/74 H 163/75 H Pulse Oximetry 95 Oxygen Delivery Method 02/09/24 13:00 02/09/24 13:01 02/09/24 13:01 Temperature Pulse Rate 74 91 H Respiratory Rate Blood Pressure 149/84 H Pulse Oximetry 90 L 94 Oxygen Delivery Method 02/09/24 13:30 02/09/24 13:30 02/09/24 14:00 Temperature Pulse Rate 89 84 Respiratory Rate Blood Pressure 160/74 H Pulse Oximetry 95 95 Oxygen Delivery Method 02/09/24 14:01 02/09/24 14:01 02/09/24 14:30 Temperature Pulse Rate 84 82 Respiratory Rate Blood Pressure 151/69 H Pulse Oximetry 96 96 Oxygen Delivery Method 02/09/24 14:30 02/09/24 15:00 02/09/24 15:00 Temperature Pulse Rate 85 Respiratory Rate Blood Pressure 153/71 H 159/76 H Pulse Oximetry 96 Oxygen Delivery Method 02/09/24 15:07 02/09/24 15:07 02/09/24 15:30 Temperature Pulse Rate 75 92 H Respiratory Rate Blood Pressure 149/73 H Pulse Oximetry Oxygen Delivery Method Medical Decision Making Medical Records Medical records reviewed: Yes I reviewed the patient's medical records. Lab Data Lab results reviewed: Yes I reviewed the patient's lab results. 02/09/24 13:20 02/09/24 13:20 Labs: Lab Results 02/09/24 02/09/24 Range/Units 13:20 13:25 WBC 8.8 (4.5-11.0) X10^3/uL RBC 4.31 (4.0-5.2) X10^6/uL Hgb 12.8 (12.0-16.0) g/dL Hct 38.3 (36-46) % MCV 88.8 (80-100) fL MCH 29.7 (26-34) PG MCHC 33.4 (30-36) % RDW 14.3 (11.6-14.8) % Plt Count 243 (150-400) X10^3/uL Neut % (Auto) 82.3 H (50-75) % Lymph % (Auto) 12.5 L (25-40) % [place] % (Auto) 4.3 (3-14) % Eos % (Auto) 0.4 L (2-4) % Baso % (Auto) 0.5 (0-2) % Neut # (Auto) 7200 H (0070-1742) /uL Lymph # (Auto) 1100 (7008-5266) /uL [place] # (Auto) 400 (0-900) /uL Eos # (Auto) 0 (0-450) /uL Baso # (Auto) 0 (0-100) /uL Sodium 139 (137-145) mmol/L Potassium 3.2 L (3.4-5.1) mmol/L Chloride 105 (98-107) mmol/L Carbon Dioxide 25 (22-32) mmol/L BUN 13 (7-17) mg/dL Creatinine 0.95 (0.52-1.04) mg/dL Estimated GFR > 60 (>60) mL/min BUN/Creatinine Ratio 13.7 (6-22) Glucose 88 (80-110) mg/dL Calcium 9.4 (8.4-10.2) mg/dL Total Bilirubin 0.8 (0.2-1.3) mg/dL AST 24 (14-36) IU/L ALT 14 (<35) IU/L Alkaline Phosphatase 122 (38-126) U/L Total Protein 7.3 (6.3-8.2) g/dL Albumin 4.3 (3.5-5.0) g/dL Globulin 3.0 (1.7-4.1) g/dL Albumin/Globulin Ratio 1.4 (1.0-2.8) Lipase 38 (23-300) U/L Urine Color Yellow Urine Appearance Clear Urine pH 7.0 (4.5-8.0) Ur Specific [place] 1.015 (1.000-1.035) Urine Protein Negative (Negative) Urine Glucose (UA) Negative (Negative) g/dL Urine Ketones Negative (NEGATIVE) Urine Occult Blood Negative (Negative) Urine Nitrate Negative (Negative) Urine Bilirubin Negative (NEGATIVE) Urine Urobilinogen 0.2 (0.2) E.U./dL Ur Leukocyte Esterase Negative (NEGATIVE) Urine RBC None seen (0-5/HPF) Urine WBC None seen (0-5/HPF) Ur Squamous Epith Cells None seen (0-5/HPF) Urine Bacteria None seen (None) Ur Culture Indicated? Cult not indicated Vol Urine Centrifuged 10ml (spun) MDM Narrative Medical decision making narrative: Patient arrives in the emergency department for multiple symptoms. Similar to her prior presentations. She wants again was found to be retaining urine. A Barlow catheter was placed however the patient declined to leave the catheter in place. Her labs are unremarkable. She states that she can not walk however she was moving her legs in the bed. She was able to stand at the bed with a walker but refuses to take any steps because the walker does not have 4 wheels. Social work evaluated the patient. We were able to schedule the patient to follow up appointment with her primary doctor on this week. Patient was given information for this. I have low suspicion for an acute CVA she does not have lateralizing weakness. She states she was hallucinating but also states this is somewhat normal for her. She does have history of bipolar disorder. Patient is asking to be discharged home. Will discharge home with return precautions. She expressed understanding and agreement with plan. Discharge Plan Departure Patient Disposition: Home Clinical Impression: Weakness, Urinary retention Instructions: How to Prevent Falls Activity Restrictions/Additional Instructions: You have an appointment scheduled on February 14 at 0145 in the afternoon with Kristen Walker at the [facility]. You can contact them at [phone]. Continue to take all of your medications as directed. Return to the emergency department for new symptoms. Prescriptions: No Action multivitamin [Multiple Vitamins] 1 EACH tablet 1 tab PO QDAY Qty: 0 docusate sodium [Colace] 100 mg capsule 100 mg PO BID PRN (Reason: constipation) Qty: 20 0RF quetiapine 25 mg tablet 25 mg PO BID Rx Instructions: Pt states she is taking one time / day gabapentin 600 mg tablet 600 mg PO 3XD lisinopril-hydrochlorothiazide 10-12.5 mg tablet 1 tab PO DAILY fluoxetine 20 mg capsule 60 mg PO QAM bupropion HCl 300 mg tablet extended release 24 hr 300 mg PO DAILY oxycodone 10 mg tablet 10 mg PO 3XD PRN (Reason: Pain (Scale Score 7-10)) Referrals: Miscellaneous,Doctor, [Non-Staff] - Stand Alone Forms: Patient Portal/API
[2024-02-09] MEDS: LORazepam 0.5 MG TABLET PO (12:35)
--- NOTE | 2024-02-09 12:39 | PC.NURSE ---
Pt on bedpan, refused commode. Moving around bed w/ strong extremities 5/5 x 4.
[2024-02-09 13:29] LABS: Add Manual Diff / Slide Review NO; Basophils Absolute Auto 0 /uL (0-100); Basophils Percent Auto 0.5 % (0-2); Eosinophils Absolute Auto 0 /uL (0-450); Eosinophils Percent Auto 0.4 % (2-4); Hematocrit 38.3 % (36-46); Hemoglobin 12.8 g/dL (12.0-16.0); Lymphocytes Absolute Auto 1100 /uL (1100-4500); Lymphocytes Percent Auto 12.5 % (25-40); Mean Corpuscular HGB Conc 33.4 % (30-36); Mean Corpuscular Hemoglobin 29.7 PG (26-34); Mean Corpuscular Volume 88.8 fL (80-100); Monocytes Absolute Auto 400 /uL (0-900); Monocytes Percent Auto 4.3 % (3-14); Neutrophils Absolute Auto 7200 /uL (1500-7000); Neutrophils Percent Auto 82.3 % (50-75); Platelet Count 243 X10^3/uL (150-400); Red Blood Cell Count 4.31 X10^6/uL (4.0-5.2); Red Cell Distribution Width 14.3 % (11.6-14.8); White Blood Cell Count 8.8 X10^3/uL (4.5-11.0)
[2024-02-09 13:46] LABS: Appearance Urine UA CLEAR; Bilirubin Urine UA NEGATIVE (NEGATIVE); Color Urine UA YELLOW; Glucose Urine UA NEGATIVE (Negative); Ketones Urine UA NEGATIVE (NEGATIVE); Leukocyte Esterase Urine UA NEGATIVE (NEGATIVE); Nitrite Urine UA NEGATIVE (Negative); Occult Blood Urine UA NEGATIVE (Negative); Protein Urine UA NEGATIVE (Negative); Specific Gravity Urine UA 1.015 (1.000-1.035); Urobilinogen Urine UA 0.2 E.U./dL (0.2)
[2024-02-09 13:49] LABS: Alanine Aminotransferase 14 IU/L (<35); Albumin 4.3 g/dL (3.5-5.0); Albumin Globulin Ratio 1.4 (1.0-2.8); Alkaline Phosphatase 122 U/L (38-126); Aspartate Aminotransferase 24 IU/L (14-36); BUN Creatinine Ratio 13.7 (6-22); Bilirubin Total 0.8 mg/dL (0.2-1.3); Blood Urea Nitrogen 13 mg/dL (7-17); Calcium 9.4 mg/dL (8.4-10.2); Carbon Dioxide 25 mmol/L (22-32); Chloride 105 mmol/L (98-107); Estimated Glomerular Filt Rate > 60 mL/min (>60); Glucose 88 mg/dL (80-110); HEMOLYSIS < 15 (0-50); Lipase 38 U/L (23-300); Potassium 3.2 mmol/L (3.4-5.1); Sodium 139 mmol/L (137-145); Total Protein 7.3 g/dL (6.3-8.2)
[2024-02-09 14:03] LABS: Bacteria Urine None Seen; Culture Indicated Urine Cult Not Indicated; RBC Urine None Seen (0-5/HPF); Squamous Epithelial Cell Urine None Seen (0-5/HPF); Urine Volume 10mL (spun); WBC Urine None Seen (0-5/HPF)
--- NOTE | 2024-02-09 15:17 | PC.NURSE ---
Pt able to stand at bedside with walker. Difficulty moving feet and taking steps due to weakness in LE.
--- NOTE | 2024-02-09 15:45 | PC.NURSE ---
Pt is speaking to staff members in disrespectful tone and words. Encouraged to speak w/ kindness.
--- NOTE | 2024-02-09 16:04 | PC.NURSE ---
pt becoming agitated and wants to leave. Refusing walker. Pt sitting up in chair.
--- NOTE | 2024-02-09 16:31 | CM.SWNOTE ---
ED APPEALS COORDINATOR Note Patient is 73 y/o female who presents to ED via EMS due to concern for increased weakness, recent GLF fall. Patient's PCP is Kristen Thurman PA-C, patient has Medicare insurance. Patient has hx of Bipolar, PTSD, urinary retension, NAT and hx of GLFs. APPEALS COORDINATOR enters room to meet with patient, patient states she is agitated and anxious. Patient presents as A/Ox4, patient endorses she completes ADLs at home at resides at [facility], patient states she doesn't like the food there and doesn't like living there. Patient resides there with her and patient receives rides from [facility] staff. Patient states she uses a four wheel walker at home and does not like using a front wheel walker. patient states that when she falls at home she can get herself back up. Patient states she has been taking rx as prescribed. Patient states she often sees illusions patient states if the room is dark she will misinterpret things, patient states in the hospital room she saw words swimming on the white board. APPEALS COORDINATOR reviews EMR and contacts [facility], it is reported that home health services never started for patient due to not meeting criteria and they did not hear from patient's PCP. APPEALS COORDINATOR contacts community phlebotomy program coordinator regarding patient and requests follow up with patient. APPEALS COORDINATOR calls patient's PCP, it is reported that patient had appt on 11/14/23 and patient had rx refilled. APPEALS COORDINATOR discusses concerns for patient's medication management, refills, recent GLFs and requests ED f/u. Patient also has appt scheduled for 03/21/24. APPEALS COORDINATOR requests that PCP review patient for home health referral. APPEALS COORDINATOR schedules ED f/u with PCP for 02/15/24 at [facility]. APPEALS COORDINATOR reviews this with patient who indicates agreement and understanding. Patient endorses she wants to go home. Patient is able to transfer from bed to chair, chair to wheelchair, and APPEALS COORDINATOR witnesses patient transfer from wheelchair to car. Patient is medically clear for d/c, [facility] transport is contacted and they arrive to pick patient up. Plan: Patient d/c to home upon medical clearance with transport, patient to f/u with PCP next week, Community phlebotomy program coordinator to reach out to patient as well. Clara Estrada, LICENSING COURT MAGISTRATE
== END 2024-02-09 16:27 | disposition home or self-care (01) ==
PROVIDERS: Emergency Provider Emergency Medicine; PCP Physician Assistant
DX: R53.1 Weakness (principal); R33.8 Other retention of urine; R44.3 Hallucinations, unspecified; M54.50 Low back pain, unspecified; Z79.899 Other long term (current) drug therapy
CPT/HCPCS: 36415; 51798; 80053; 81001; 83690; 85025; 99283; 99284